=== PATIENT | female | born 1965 | race Caucasian/White ===

== ENCOUNTER 2016-12-16 08:05 | Inpatient (IN) | payer OTHER ==
[~2016-12-16] VITALS: Ht 165.1 cm; Wt 64.9 kg
--- NOTE | ~2016-12-16 | P ---
[facility] [place] [address] PROCEDURE REPORT Name: LITZY JAMESON Room #: 433-I [facility] IN .R.#: [id number] Admission: 12/16/16 Attend Phys: Robi Holder, DO Discharge: Date of : 61 Report #: [id number] THIS REPORT FOR: //name// CC: Robi Holder DATE OF SERVICE: 12/18/2016 PROCEDURE: Fiberoptic bronchoscopy with bronchoalveolar washing of the multiple airways. INDICATION: Mucous plugging, history of bronchiectasis, and pneumonia, bronchoscopy done for airway clearance and cultures, ASA classification class 2. PROCEDURE NOTATION: After discussing risks and benefits of procedure with the patient, she desired to proceed. After obtaining informed consent, she was brought to open hearth laborer 3 where she was placed on continuous monitoring and supplemental oxygen. She was then given 4% lidocaine nebulized to anesthetize the upper respiratory tract. Once accomplished, she received conscious sedation. Prior to procedure, the patient received 25 mg of Benadryl and a total of 50 mcg of fentanyl and 6 mg of lorazepam were titrated during the procedure to provide adequate sedation. Once accomplished, bronchoscope was passed through an oral biteblock with the patient in a semirecumbent position until the vocal cords were visualized. Vocal cords moved appropriately both before and after procedure. 1% lidocaine was then instilled in the vocal cords to provide topical anesthesia. Bronchoscope was then advanced in the trachea, 1% lidocaine was instilled in the tracheobronchial tree bilaterally to provide topical anesthesia. Once complete, airways were surveyed. FINDINGS: Mainstem, lobar, segmental and subsegmental bronchi were explored with no significant anatomic variation. There was diffuse edema of the airways. Diffuse mucus plugging what appeared to be slightly clear to white mucus plugs were noted throughout the airways without any preponderance in any particular area. The airways were purged and aspirated with several 20 mL aliquots of saline. Once airways were purged and cleared, airways appeared patent with no significant disease. Specimen trap showed multiple areas of bronchial cast as well as some cloudy return. This was sent for microbiologic and cytologic tests. The patient tolerated the procedure reasonably well with no noted complications. IMPRESSION: Diffuse mucus plugging in patient with bronchiectasis and pneumonia, status post bronchoscopy with bronchioalveolar washings and clearance of mucus plugs. [address] [address] PROCEDURE REPORT Name: LITZY JAMESON Room #: 433-I [facility] IN .R.#: [id number] Admission: 12/16/16 Attend Phys: Robi Holder DO Discharge: Date of : 61 Report #: [id number] PLAN: Await microbiologic and cytologic tests. Aerosol treatment with DuoNebs post-procedure. By: 0855 1132 Jeff Wilkinson MD /nt
--- NOTE | ~2016-12-16 | EKG ---
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
--- NOTE | ~2016-12-16 | H ---
[facility] [place] [address] HISTORY AND PHYSICAL Name: LITZY JAMESON Room #: 433-I ADM IN .R.#: [id number] Admission: 12/16/16 Attend Phys: Robi Holder DO Discharge: Date of : 61 Report #: [id number] THIS REPORT FOR: //name// CC: Robi Holder DATE OF SERVICE: 12/16/2016 PATIENT LOCATION: Room 442. HISTORY OF PRESENT ILLNESS: This 51-year-old white female was admitted through the Emergency Room with severe coughing, wheezing, dyspnea, and respiratory distress. The patient says she has got sick yesterday, came on her chest, but had been coughing up some green phlegm. She denies cigarette use. She is usually not on prednisone, but started 12.5 mg of methylprednisolone yesterday to no avail. 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 PAST SURGICAL HISTORY: Appendectomy, partial hysterectomy, bilateral salpingo-oophorectomy, bunionectomy, tonsillectomy, left corneal transplants, right foot medializing calcaneal osteotomy with right foot posterior tibial tendon reconstruction and hardware removal in 2012. MEDICATIONS: On admission, Benadryl 50 mg at bedtime, Lotemax 1 drop affected eye twice a day; IVIG every 4 weeks, initially at home, but next month will start being treated in the hospital outpatient; furosemide 40 mg b.i.d., sertraline 150 mg daily, ProAir 2 puffs as needed, Adderall-XR 40 mg daily, KCl 10 mEq twice a day, omeprazole 20 mg daily, amlodipine 10 mg daily, simvastatin 20 mg daily, DuoNeb q.i.d. as needed, Dulera 200/5 two puffs b.i.d. ALLERGIES: FLUTICASONE, PNEUMOVAX, PREDNISONE AND THEOPHYLLINE all causing mental aberration. SOCIAL HISTORY: She lives alone. She no longer smokes. 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 REVIEW OF SYSTEMS: Denies nausea, vomiting, diarrhea, dysuria, or chest pain. PHYSICAL EXAMINATION: GENERAL: A tachypneic, dyspneic, coughing white female. VITAL SIGNS: Initial BP 214/126, currently 138/90, pulse 100, respirations 24, [address] [address] HISTORY AND PHYSICAL Name: LITZY JAMESON Room #: 433-I [facility] IN M.R.#: [id number] Admission: 12/16/16 Attend Phys: Robi Holder DO Discharge: Date of : 61 Report #: [id number] temperature 98.7. HEAD: No rash or trauma. EARS, NOSE AND THROAT: No lesions. No oral thrush. EYES: No icterus. NECK: Supple. LUNGS: Cough is markedly bronchitic. She has diffuse wheezes and rhonchi in all valladares on both inspiration and expiration. HEART: Regular rhythm without gallop. ABDOMEN: Soft, without masses, tenderness or guarding. EXTREMITIES: No edema or cellulitis. NEUROLOGIC: Alert and oriented and an accurate historian. No lateralized deficits. Chest x-ray shows no acute disease. LABORATORY DATA: White count 11,700, hemoglobin 15. Sodium 138, potassium 3.5, CO2 of 25, BUN 9, creatinine 0.7, blood sugar 106, calcium 9.2. Arterial blood gases were pH 7.42, pCO2 of 38, pO2 of 63 on room air. On room air, her O2 sat is 92%. IMPRESSION: 1. Exacerbation of chronic obstructive lung disease. 2. Common variable immunodeficiency. 3. Hypertension. 4. Hyperlipidemia. 5. Anxiety and depression. 6. History of bipolar disorder. 7. History of seizure disorder. 8. Attention deficit hyperactivity disorder. PLAN: Admit on telemetry for aggressive pulmonary therapy, pulmonary to see, steroids, bronchodilators, antibiotics, rehabilitation effort. PROGNOSIS: Guarded. <ELECTRONICALLY SIGNED> By: Robi Holder DO 12/17/16 0800 0946 1036 Robi Holder DO /nt
--- NOTE | ~2016-12-16 | D ---
[facility] [place] [address] DISCHARGE SUMMARY Name: LITZY JAMESON Room #: 446-P ADM IN M.R.#: [id number] Admission: 12/16/16 Attend Phys: Robi Holder DO Discharge: Date of : 61 Report #: [id number] THIS REPORT FOR: //name// CC: Marquise Wilkinson MD DATE OF SERVICE: 12/23/2016 DATE OF ADMISSION: 12/16/2016 DATE OF DISCHARGE: 12/23/2016 HISTORY OF PRESENT ILLNESS: This 51-year-old white female was admitted in respiratory distress with cough, wheezing and dyspnea. 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 HOSPITAL COURSE: PHYSICAL EXAMINATION: GENERAL: Initial physical revealed a tachypneic, dyspneic white female in respiratory distress with diffuse wheezing and rhonchi. CARDIAC: Negative. ABDOMEN: Soft, nontender. EXTREMITIES: No edema. NEUROLOGIC: She was alert and oriented and an accurate historian. LABORATORY DATA: Initial white count 11,000, hemoglobin 15. Electrolytes normal. BUN 9, creatinine 0.7, blood sugar 106, calcium 9.2. Arterial blood gas with pO2 of 63 on room air with pH 7.42, pCO2 of 38. She was admitted with exacerbation of bronchiectasis and COPD. She was seen in consult by Dr. Wilkinson of [facility]. EKG shows left atrial enlargement and otherwise negative. Multiple lab studies were obtained. She did not improve and Dr. Wilkinson performed a bronchoscopy, in which he found extensive mucus plugging, which he was able to aspirate. Sputum cytology was negative. Sputum cultures were negative for pathogens. She received IV steroids and then oral steroids, IV antibiotics, and eventually improved. Her discharge hemoglobin was 14 grams, white count 11,000. Sodium 139, potassium 3.6, CO2 of 31, BUN 19, creatinine 0.1, estimated GFR 52. Blood sugar 110, calcium 8.5, albumin 3.5. She did complain of urinary urgency with some stress incontinence. Bladder scan [address] [address] DISCHARGE SUMMARY Name: LITZY JAMESON Room #: 6[facility] IN .R.#: [id number] Admission: 12/16/16 Attend Phys: Robi Holder DO Discharge: Date of : 61 Report #: [id number] was performed prior to discharge as she had been in retention in the past. On 12/23/2016, she was ambulatory, off oxygen, had much brighter affect and not short of breath even though she still continued to wheeze some. This is unusual for her, however, as an outpatient. She was stable for discharge home. She had had one episode of anxiety, depression here following a bronchoscopy which she believes was a reaction to high anesthesia. Dr. Silvia Ovalles of Psychiatry saw the patient and felt she had an acute anxiety attack, recommended Seroquel while on steroids. DISCHARGE DISPOSITION: On 12/23/2016, she was able to be discharged home. DIET: Low salt diet. DISCHARGE MEDICATIONS: Seroquel 100 mg at bedtime while she takes methylprednisolone 8 mg b.i.d. for 2 days, then 4 mg t.i.d. for 2 days, then 4 mg b.i.d. for 2 days, then 4 mg daily for 2 days, then stop; DuoNeb treatments q. 4 hours as needed, clonidine 0.1 mg b.i.d., hydrocodone 10/325 dispensed #61 b.i.d. p.r.n. headache or back pain, clonazepam 0.5 mg q.6h p.r.n. anxiety and 2 mg at bedtime, immunoglobulin 20 grams IV every 4 weeks at home, Benadryl 50 mg at bedtime, lamotrigine 100 mg at bedtime, sertraline 100 mg at bedtime, KCl 20 mEq b.i.d., furosemide 40 mg b.i.d., Lotemax eye drop one drop each eye b.i.d., multivitamin daily, melatonin 3 mg at bedtime p.r.n. sleep, Adderall-XR 20 mg b.i.d., vitamin D3 2000 units daily, MiraLax 1 capful daily as needed. FOLLOWUP: She will see me in 2 weeks for followup exam. FINAL DIAGNOSES: 1. Exacerbation of bronchiectasis with acute respiratory distress. 2. Acute anxiety reaction. 3. Common variable immunodeficiency. 4. Seizure disorder. 5. Hypertension. 6. Anxiety, depression. 7. Migraine. 8. Stress incontinence. 9. Chronic obstructive lung disease. By: [id number] Robi Holder, DO /nt
--- NOTE | ~2016-12-16 | CNG ---
[facility] [place] [address] CYTO-NONGYN REPORT PROCEDURE Name: LITZY NUNEZ Room #: 433-I ADM IN M.R.#: [id number] Admission: 12/16/16 Date of : 61 Discharge: Report #: [id number] Path Case #: [id number] CYTOPATHOLOGY REPORT COLLECTION DATE: 12/16/2016 RECEIVED DATE: 12/17/2016 SUBMITTING PHYS: Dr. Lino Soto OTHER PHYS: Dr. Robi Holder CLINICAL HISTORY: SOB, Audible wheezing. SPECIMEN(S) RECEIVED: A.Sputum * * * * * * * * * * * * FINAL DIAGNOSIS: A. Sputum: - No malignant cells identified. Pulmonary macrophages, squamous cells, fungal elements and scattered inflammatory cells identified. PATHOLOGIST: Saul Guerrero M.D. REPORT ELECTRONICALLY SIGNED BY: Saul Guerrero M.D. DATE/TIME: 12/18/2016 10:24 * * * * * * * * * * * * GROSS PATHOLOGY: A. Sputum: The specimen is submitted unfixed, labeled "Litzy Nunez". Received by the Cytology Department is less than one mL of clear white fluid. One ThinPrep slide was prepared. (clt 12.17.2016) SKI TOPPER(S): ELIJAH Burton(ASCP) INITIAL CPT CODE(S): A; 22784 Professional services performed by [facility] at [facility] [address] , [place] [address] Technical services performed by [facility] at [address] [place] [address]., [address], [place] [address]. [facility] [address] [place] [address], [address] [place] [address] PHONE: [phone] [facility] [address] [place] [address] CYTO-NONGYN REPORT PROCEDURE Name: LITZY NUNEZ Room #: 433-I ADM IN M.R.#: [id number] Admission: 12/16/16 Date of : 61 Discharge: Report #: [id number] Path Case #: [id number] DIRECTOR: Shahzad Flanagan M.D. * * * END OF REPORT * * *
--- NOTE | ~2016-12-16 | EKG ---
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 : 1965 Requested By: Robi Holder Order Number: [id number] MD: Marin Aceves Measurements Intervals [place] Rate: 82 P: 69 GA: 157 QRS: 33 QRSD: 88 T: 38 QT: 388 QTc: 453 Interpretive Statements Sinus rhythm Consider right atrial enlargement Compared to ECG 12/16/2016 08:16:48 No significant changes Electronically Signed On 12-17-2016 7:23:29 CDT by Marin Aceves [email or web address] <ELECTRONICALLY SIGNED> By: Marin Aceves MD, [facility] 12/17/16 07 2051 50 Marin Aceves MD, [facility] /EPI
--- NOTE | ~2016-12-16 | CNG ---
[facility] [place] [address] CYTO-NONGYN REPORT PROCEDURE Name: LITZY NUNEZ Room #: 446-P ADM IN M.R.#: [id number] Admission: 12/16/16 Date of : 61 Discharge: Report #: [id number] Path Case #: [id number] CYTOPATHOLOGY REPORT COLLECTION DATE: 12/18/2016 RECEIVED DATE: 12/18/2016 SUBMITTING PHYS: Dr. Jeff Wilkinson OTHER PHYS: Dr. Kelle Holder CLINICAL HISTORY: COPD Exacerbation SPECIMEN(S) RECEIVED: A.Bronchial wash * * * * * * * * * * * * FINAL DIAGNOSIS: A. Bronchial wash: - No malignant cells identified. A few bronchial cells and pulmonary macrophages identified. PATHOLOGIST: Enoch Reyna M.D. REPORT ELECTRONICALLY SIGNED BY: Enoch Reyna M.D. DATE/TIME: 12/19/2016 11:11 * * * * * * * * * * * * GROSS PATHOLOGY: A. Bronchial wash: The specimen is submitted unfixed, labeled "Litzy Nunez". Received by the Cytology Department is 15 mL of cloudy colorless fluid. One ThinPrep slide and was prepared. (mm 12.18.2016) COBBLER UPPER(S): ELIJAH Burton(ASCP) INITIAL CPT CODE(S): A; 50635 Professional services performed by [facility] at [facility] [address], [place] [address] Technical services performed by [facility] at [address] [place] [address]., [address], [place] [address]. [facility] [address] [place] [address], [address] [place] [address] [facility] [address] [place] [address] CYTO-NONGYN REPORT PROCEDURE Name: LITZY NUNEZ Room #: 446-P ADM IN M.R.#: [id number] Admission: 12/16/16 Date of : 61 Discharge: Report #: [id number] Path Case #: [id number] PHONE: [phone] DIRECTOR: Shahzad Flanagan M.D. * * * END OF REPORT * * *
--- NOTE | ~2016-12-16 | HC ---
[facility] [place] [address] CONSULTATION Name: LITZY JAMESON Room #: 446-P ADM IN M.R.#: [id number] Admission: 12/16/16 Attend Phys: Robi Holder DO Discharge: Date of : 61 Report #: [id number] THIS REPORT FOR: //name// CC: Robi Holder DATE OF SERVICE: 12/16/2016 REASON FOR CONSULTATION: Exacerbation of bronchiectasis. IMPRESSION: 1. Exacerbation of bronchiectasis. 2. Common variable immune deficiency. 3. History of anxiety, depression, bipolar disorder. 4. Attention deficit. PLAN: Mucomyst, aerosol therapy, IPV, flutter valve, Mucinex, may consider bronchoscopy, induce sputum, deep venous thrombosis and ulcer prophylaxis. HISTORY OF PRESENT ILLNESS: The patient is a 51-year-old who had been feeling okay, sick yesterday, cough; even with increased steroids, did not do well, now wheezing and short of breath. PAST MEDICAL HISTORY: Surgeries include appendectomy, partial hysterectomy, bilateral salpingo-oophorectomy, bunionectomy, tonsillectomy, left corneal transplant, medializing calcaneal osteotomy with right foot, posterior tibial tendon reconstruction and hardware removal in 2012. HOME MEDICATIONS: Included Benadryl, Lotemax, IVIG, furosemide, ProAir, Adderall, potassium, omeprazole, amlodipine, DuoNeb, Dulera. ALLERGIES: FLUTICASONE, PNEUMOVAX, PREDNISONE, THEOPHYLLINE. 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 REVIEW OF SYSTEMS: COPD, Pastor palsy, sacroiliitis, positive cough and shortness breath. PHYSICAL EXAMINATION: VITAL SIGNS: Temperature 98.7, pulse 86, respirations 16, BP 157/88. EYES: Negative icterus. NECK: Negative JVD. LUNGS: Wheeze. HEART: Regular. ABDOMEN: Benign. EXTREMITIES: Show no edema or cyanosis. [facility] [address] [place] [address] CONSULTATION Name: LITZY JAMESON Room #: [address] [place] [address] [place] [facility]#: [id number] Admission: 12/16/16 Attend Phys: Robi Holder DO Discharge: Date of : 61 Report #: [id number] LABORATORY DATA: pH of 7.429, pCO2 of 38, pO2 of 64 on room air. BUN 9, creatinine 0.7. White count 11.7, hemoglobin 15, platelets 220, bands 1. <ELECTRONICALLY SIGNED> By: Lino Soto MD 12/19/16 1907 1653 0512 Lino Soto MD /nt
[~2016-12-16 08:05] MED LIST: ACETAMINOPHEN325 M1 PO; ADDERALL 10 MG10 MG PO; ADDERALL 20 MG20 M1 PO; ADDERALL XR 2020 MG PO; ADVAIR 250-501 EACH IH; ADVAIR 500-501 EACH; ADVAIR 500-501 EACH INH; ADVAIR HFA 230M1 AER IH; ADVAIR HFA 230M1 AER INH; ALBUTEROL2.5 MG/0.1 INH; ANTACID SUSPEN355 M1 PO; AVELOX 400 MG400 MG; AVELOX 400 MG400 MG PO; AZITHROMYCIN 2250 MG PO; BACTRIM 400-801 EACH PO; BENADRYL ALLERG25 MG PO; BENADRYL25 MG PO; BISACODYL SUPP10 MG RECTAL; CEFTIN 250 MG250 MG PO; CEFTIN500 MG PO; CEFUROXIME500 MG PO; CELEBREX50 MG PO; CENTRUM SILVER1 EAC1 PO; CEREFOLIN NAC1 EAC1 PO; CLARITIN-D 12 H1 TA1 PO; CLONAZEPAM 1 MG1 M1 PO; CLONAZEPAM PO; CLONAZEPAM2 MG PO; COLACE100 MG PO; COMBIVENT INH; DALIRESP500 MCG PO; DITROPAN XL10 M1 PO; DITROPAN XL15 MG PO; DOXYCYCLINE 10100 M1 PO; DULERA 200 MCG/13 GM INH; DUONEB 2.5-0.5 M3 ML INH; DUREZOL5 ML OPHTHALMIC; ERYTHROCIN STE500 MG PO; ESTRACE0.5 MG PO; FISH OIL 1,2001 EAC3 PO; FISH OIL SOFTG1 EACH; FLOMAX0.4 MG PO; FLONASE 0.05%50 MCG NASAL; FROVA2.5 MG PO; FUROSEMIDE PO; GAMMAGARD IV; GAMUNEX-C20 GM/200 IV; GAVILAX17 GM PO; GLYCOLAX POWDER17 G1 PO; GUAIFENESIN DM1 EACH PO; HYDROCODON-ACE1 EA12 PO; HYDROCODON-ACE1 EAC2 PO; HYDROCODON-ACE1 EAC7 PO; HYDROCODON-ACE1 EAC8 PO; HYDROCODONE-CHLO5 ML PO; HYZAAR 100-12.1 EACH PO; HYZAAR 100-251 EACH PO; IBUPROFEN 600600 M1 PO; IMITREX 50 MG T50 MG PO; INDERAL XL80 MG PO; IPRAT-ALBUT 0.5-3 ML IH; K-DUR 20 MEQ T20 MEQ PO; KEFLEX500 MG PO; KLOR-CON 10 ER10 MEQ PO; LAMICTAL PO; LAMICTAL XR200 MG PO; LAMOTRIGINE100 MG PO; LAMOTRIGINE200 MG PO; LASIX 40 MG TAB40 M1 PO; LEXAPRO20 MG PO; LIDODERM 5%1 PATCH TOP; LISINOPRIL2.5 MG PO; LITHIUM CARBON150 MG PO; LITHIUM CARBON300 M3 PO; LITHIUM CARBON300 M6 PO; LORTAB 5 MG/5001 TA1 PO; LOTEMAX5 ML OPHTHALMIC; MAGNESIUM400 MG PO; MEDROL DOSPAK21 TA1 PO; MEDROL4 MG; MEDROL4 MG PO; MEDROLDOSEPACK PO; MELATONIN1 MG PO; MELATONIN3 MG PO; METHYLPREDNISOL16 MG; MIRALAX255 GM OR; MIRALAX255 GM PO; MOM PO; MUCINEX TA600 MG/TA1 PO; MUCINEX600 MG PO; MULTI VITAMIN1 EACH PO; MYRBETRIQ25 MG PO; NARATRIPTAN2.5 MG PO; NEURONTIN 300300 M1 PO; NICOTINE TRANSD21 M1 TD; NORCO 5-325 TA1 EACH PO; NORVASC10 MG PO; NYSTATIN 1100000 U/M SW&SWALLOW; OMEGA-31000 MG PO; OXYBUTYNIN 5 MG5 M1 OR; PERCOCET 5-3251 EACH PO; PHENERGAN 25 MG25 MG PO; PIPERACIL-TAZO4.5 GM IV; POTASSIUM20 PO; PRED FORTE 1% EY5 M1; PRED FORTE 1% EY5 M1 OP; PRED FORTE 1% EY5 M1 OPHTHALMIC; PRED-FORTE OPHTH1 M1 GTT; PREDNISOLONE5 G1; PREDNISONE 10 M10 M1 PO; PREDNISONE 20 M20 M1 PO; PREDNISONE 20 M20 MG PO; PREDNISONE OR; PROAIR HFA8.5 GM INH; PROTONIX40 M2 PO; PROVENTIL; SEROQUEL 100 M100 MG PO; SEROQUEL 25 MG25 MG PO; SEROQUEL PO; SEROQUEL XR200 MG PO; SIMVASTATIN20 MG PO; SINGULAIR 10 MG10 M1 PO; SKIN PROTECTAN113 GM; SYMBICORT160 MCG/4. PO; SYMBICORT80 MCG/4.1 INH; TAMSULOSIN HCL0.4 M1 PO; TAMSULOSIN HCL0.4 MG PO; TOPAMAX 25 MG T25 MG PO; TOPAMAX50 MG PO; TOVIAZ8 MG PO; TUMS PO; VALTREX 500 MG500 M1 PO; VESICARE 5 MG TA5 M1 PO; VESICARE10 M1; VIGAMOX3 M1 OPHTHALMIC; VITAMIN A10000 UNI3 PO; VITAMIN B PO; VITAMIN B-1100 M1 PO; VITAMIN D 5050000 I1 PO; VITAMIN D1000 UNI1 PO; VITAMIN D32000 UNIT PO; VITAMIN D35000 UNI1 PO; VITAMIN D400 UNI1; WELLBUTRIN XL300 M1 PO; WELLBUTRIN XL300 M2 PO; XOPENEX HF1 UDINHALE INH; XOPENEX1.25 MG/3 INH; ZESTRIL2.5 MG PO; ZINC CHELATE50 MG PO; ZOCOR 20 MG TAB20 M1 PO; ZOFRAN 4 MG ORAL4 MG SUBLING; ZOFRAN ODT4 MG PO; ZOFRAN4 MG PO; ZOLOFT 50 MG TA50 M1 PO; ZOLOFT PO; ZOLOFT100 MG PO; ZPAK PO; ZYVOX600 MG GTT; ZYVOX600 MG PO; [UNRECOGNIZED DRUG - OTHER] IRRIG; [UNRECOGNIZED DRUG - SUPPLY]
[2016-12-16 08:10] VITALS: BP 214/126
[2016-12-16 08:33] LABS: ABG SAMPLE TYPE ARTERIAL; BE(vivo) 0.7 mmol/L (-2 to +3); HCO3 24.9 mmol/L (22.0-26.0); LACTATE 1.05 mmol/L (0.5-2.0); O2(CT) 20.9 mL/dL (15.0-23.0); O2Hb 92.1 % (92.0-98.0); PCO2 38.4 mmHg (35.0-45.0); PO2 63.6 mmHg (80.0-100.0); pH 7.429 (7.360-7.450); sO2 92.9 % (92.0-98.0)
[2016-12-16 08:34] LABS: STICK SITE R.RADIAL
[2016-12-16 08:50] LABS: HEMATOCRIT 44.5 % (37.0-47.0); MCH 29.5 pg (26.0-34.0); MCHC 33.7 g/dL (28.0-37.0); MCV 87.3 fL (80.0-100.0); PLATELET COUNT 220 thou/uL (150-400); WBC 11.7 thou/uL (4.0-11.0)
[2016-12-16 08:51] LABS: MANUAL DIFF YES
[2016-12-16 09:07] LABS: CALCIUM 9.2 mg/dL (8.5-10.1); CREATININE 0.7 mg/dL (0.6-1.0); POTASSIUM 3.5 mmol/L (3.5-5.1)
[2016-12-16 09:18] VITALS: BP 138/90
[2016-12-16 09:27] LABS: ABSOLUTE NEUTROPHILS 9.2 thou/uL (1.4-8.2); PLATELET ESTIMATE NORMAL; TOTAL CELL COUNT 100
[2016-12-16 09:42] VITALS: BP 154/94
[2016-12-16 10:00] VITALS: BP 160/100
[2016-12-16 15:40] VITALS: BP 157/88
[2016-12-16 19:30] VITALS: BP 142/77
[2016-12-17] VITALS: BP 165/98
[2016-12-17 05:34] LABS: HEMATOCRIT 44.4 % (37.0-47.0); HEMOGLOBIN 14.7 gm/dL (12.0-15.0); MCH 29.3 pg (26.0-34.0); MCHC 33.1 g/dL (28.0-37.0); MCV 88.7 fL (80.0-100.0); PLATELET COUNT 242 thou/uL (150-400); RDW 14.5 % (10.5-14.5); WBC 9.9 thou/uL (4.0-11.0)
[2016-12-17 05:35] LABS: MANUAL DIFF YES
[2016-12-17 05:51] LABS: ALBUMIN 3.5 g/dL (3.4-5.0); CREATININE 0.8 mg/dL (0.6-1.0); POTASSIUM 3.7 mmol/L (3.5-5.1); TOTAL BILIRUBIN 0.3 mg/dL (<0.1-1.0); TOTAL PROTEIN 7.2 g/dL (6.4-8.2)
[2016-12-17 06:00] VITALS: BP 157/96
[2016-12-17 09:32] LABS: ABSOLUTE NEUTROPHILS 8.8 thou/uL (1.4-8.2); PLATELET ESTIMATE NORMAL; TOTAL CELL COUNT 100
[2016-12-17 15:42] VITALS: BP 164/106
[2016-12-17 20:53] VITALS: BP 175/100
[2016-12-18 04:50] LABS: HEMATOCRIT 42.1 % (37.0-47.0); HEMOGLOBIN 13.8 gm/dL (12.0-15.0); MCHC 32.8 g/dL (28.0-37.0); MCV 88.5 fL (80.0-100.0); PLATELET COUNT 260 thou/uL (150-400); RBC 4.75 mil/uL (4.20-5.00); RDW 14.5 % (10.5-14.5); WBC 24.1 thou/uL (4.0-11.0)
[2016-12-18 04:52] LABS: MANUAL DIFF YES
[2016-12-18 04:54] VITALS: BP 161/88
[2016-12-18 05:13] LABS: CREATININE 0.9 mg/dL (0.6-1.0); POTASSIUM 4.1 mmol/L (3.5-5.1)
[2016-12-18 05:26] LABS: CALCIUM 8.9 mg/dL (8.5-10.1)
[2016-12-18 09:03] LABS: ABSOLUTE NEUTROPHILS 21.9 thou/uL (1.4-8.2); PLATELET ESTIMATE NORMAL; TOTAL CELL COUNT 100
[2016-12-18 10:04] VITALS: BP 168/100
[2016-12-18 21:10] VITALS: BP 181/98
[2016-12-19 08:20] VITALS: BP 152/104
[2016-12-19 20:52] VITALS: BP 153/97
[2016-12-20 04:15] VITALS: BP 122/77
[2016-12-20 06:35] LABS: ABSOLUTE NEUTROPHILS 8.4 thou/uL (1.4-8.2); BASOPHILS 0.1 % (0.0-2.0); EOSINOPHILS 0.4 % (0.0-3.0); HEMATOCRIT 42.4 % (37.0-47.0); HEMOGLOBIN 14.2 gm/dL (12.0-15.0); LYMPHOCYTES 15.6 % (24.0-44.0); MCH 29.5 pg (26.0-34.0); MCHC 33.4 g/dL (28.0-37.0); MCV 88.4 fL (80.0-100.0); MONOCYTES 8.1 % (1.0-8.0); PLATELET COUNT 237 thou/uL (150-400); POLYS 75.8 % (36.0-66.0); RDW 14.1 % (10.5-14.5); WBC 11.1 thou/uL (4.0-11.0)
[2016-12-20 06:46] LABS: MANUAL DIFF NO
[2016-12-20 06:48] LABS: CALCIUM 8.5 mg/dL (8.5-10.1); CREATININE 1.1 mg/dL (0.6-1.0); POTASSIUM 3.6 mmol/L (3.5-5.1)
[2016-12-20 08:35] VITALS: BP 144/95
[2016-12-20] MEDS ORDERED: CEFUROXIME500 MG PO (15:05)
[2016-12-20] MEDS ORDERED: SEROQUEL 100 M100 MG PO (15:05)
[2016-12-20] MEDS ORDERED: MEDROLDOSEPACK (15:09)
[2016-12-20 17:24] VITALS: BP 144/95
[2016-12-20 18:32] VITALS: BP 152/98
[2016-12-21 03:25] VITALS: BP 119/79
[2016-12-21 16:00] VITALS: BP 167/116
[2016-12-21 20:09] VITALS: BP 165/105
[2016-12-21 20:10] VITALS: BP 169/102
[2016-12-22 05:51] VITALS: BP 110/62
[2016-12-22 07:20] VITALS: BP 135/85
[2016-12-22 16:00] VITALS: BP 153/86
[2016-12-22 20:05] VITALS: BP 152/95
[2016-12-23 04:00] VITALS: BP 104/72
[2016-12-23] MEDS ORDERED: DUONEB 2.5-0.5 M3 ML INH ×2 (07:56)
[2016-12-23] MEDS ORDERED: CLONIDINE0.1 PO (07:56)
[2016-12-23] MEDS ORDERED: MULTI VITAMIN1 EACH PO (07:56)
[2016-12-23] MEDS ORDERED: NORCO 10-325 T1 EACH PO (07:56)
[2016-12-23] MEDS ORDERED: LASIX 40 MG TAB40 M1 PO (07:56)
[2016-12-23] MEDS ORDERED: LAMOTRIGINE100 MG PO (07:56)
[2016-12-23] MEDS ORDERED: LOTEMAX5 ML OPHTHALMIC (07:56)
[2016-12-23] MEDS ORDERED: ADDERALL XR 2020 MG PO (07:56)
[2016-12-23] MEDS ORDERED: MELATONIN3 MG PO (07:56)
[2016-12-23] MEDS ORDERED: MEDROL8 MG PER TUBE (07:56)
[2016-12-23] MEDS ORDERED: ZOLOFT100 MG PO (07:56)
[2016-12-23] MEDS ORDERED: KLOR-CON 10 ER10 MEQ PO (07:56)
[2016-12-23] MEDS ORDERED: BENADRYL25 MG PO (07:56)
[2016-12-23] MEDS ORDERED: CLONAZEPAM2 MG PO (07:56)
[2016-12-23 08:00] VITALS: BP 135/98
[2016-12-23 11:11] VITALS: BP 144/95
[2016-12-23 11:57] VITALS: BP 144/95
== END 2016-12-23 11:55 | disposition home or self-care (01) | DRG 871 ==
LOC: ER 08:05 → 4S 09:01 → EROBS 09:01 → 4S 09:55 → ENTRNSPT 12-17 18:15 → 4S 12-18 17:57 → ENTRNSPT 12-23 11:45 → EDTRNSPT 12-23 11:46 → EDTRNSPTSTS 12-23 11:47 → 4S 12-23 11:55
PROVIDERS: Emergency Medicine; Internal Medicine
PROC: 0B978ZX Drainage of Left Main Bronchus, Via Natural or Artificial Opening Endoscopic, Diagnostic (ICD-10-PCS; principal; 2016-12-18)
PROC: 0B938ZX Drainage of Right Main Bronchus, Via Natural or Artificial Opening Endoscopic, Diagnostic (ICD-10-PCS; principal; 2016-12-18)
DX: A41.9 Sepsis, unspecified organism (principal); G93.41 Metabolic encephalopathy; J47.1 Bronchiectasis with (acute) exacerbation; J44.1 Chronic obstructive pulmonary disease with (acute) exacerbation; D83.9 Common variable immunodeficiency, unspecified; J45.901 Unspecified asthma with (acute) exacerbation; F41.9 Anxiety disorder, unspecified; F31.9 Bipolar disorder, unspecified; F42.9 Obsessive-compulsive disorder, unspecified; I10 Essential (primary) hypertension; G43.909 Migraine, unspecified, not intractable, without status migrainosus; M19.90 Unspecified osteoarthritis, unspecified site; G40.909 Epilepsy, unspecified, not intractable, without status epilepticus; F90.9 Attention-deficit hyperactivity disorder, unspecified type; G51.0 Bell's palsy; Z90.49 Acquired absence of other specified parts of digestive tract; Z87.891 Personal history of nicotine dependence; Z90.710 Acquired absence of both cervix and uterus; Z88.8 Allergy status to other drugs, medicaments and biological substances; Z88.7 Allergy status to serum and vaccine; Z91.041 Radiographic dye allergy status; Z94.7 Corneal transplant status
CPT/HCPCS: 10100; 10102

== ENCOUNTER → 2018-01-21 | Outpatient (CLI) | payer OTHER ==
[~2018-01-21] MED LIST changes: +CLONIDINE0.1 PO; +MEDROL8 MG PER TUBE; +MEDROLDOSEPACK; +NORCO 10-325 T1 EACH PO
== END ==
LOC: MRI 10:28
DX: M25.561 Pain in right knee (principal)

== ENCOUNTER → 2018-02-26 | Outpatient (CLI) | payer OTHER | LOC: RAD 11:20 | DX: R07.81 Pleurodynia (principal) ==

== ENCOUNTER → 2018-05-07 | Outpatient (CLI) | payer OTHER | LOC: RAD 12:20 | DX: J98.11 Atelectasis (principal); M47.814 Spondylosis without myelopathy or radiculopathy, thoracic region ==